=== PATIENT | female | born 2000 | race Caucasian/White ===

== ENCOUNTER 2020-11-26 09:09 | Emergency (ER) | payer MEDICAID ==
[2020-11-26] MEDS ORDERED: LORazepam 1 MG Tab PO ONE (10:15)
--- NOTE | 2020-11-26 10:21 | EDM.PDOCBH ---
ED HPI GENERAL MEDICAL PROBLEM - General Chief Complaint: Behavioral/Psych Stated Complaint: SUICIDAL Time Seen by Provider: 11/26/20 10:17 Source of Information: Reports: Patient History Limitations: Reports: No Limitations - History of Present Illness INITIAL COMMENTS - FREE TEXT/NARRATIVE: pt arrived feeling very suicidal. She feels like she could walk out in front of a car. She was just placed on control and she has had trouble with hormone treatment in the past. Onset: Gradual Duration: Day(s):, Other (pt just started working at [email or web address] so that has had increased her stress. ) Location: Reports: Generalized Associated Symptoms: Reports: Other (pt has marked anxiety. pt has had alot of suicidal thoughts. Like today she felt like walking in front of a car. She has been doing some cutting. ) - Related Data Allergies Allergy/AdvReac Type Severity Reaction Status Date / Time amoxicillin Allergy Shortness Verified 11/26/20 09:40 of Breath apple Allergy Rash Verified 11/26/20 09:41 carrot Allergy Rash Verified 11/26/20 09:44 saavedra Allergy Rash Verified 11/26/20 09:44 latex Allergy Rash Verified 11/26/20 09:42 nitrofurantoin Allergy Nausea Verified 11/26/20 09:42 Penicillins Allergy Shortness Verified 11/26/20 09:41 of Breath Home Meds: Home Meds metroNIDAZOLE [Flagyl] 500 mg PO BID 11/26/20 [History] Past Medical History Psychiatric History: Reports: ADHD, Anxiety, Depression, PTSD, Suicide Attempt Hematologic History: Reports: Anemia Social & Family History - Tobacco Use Tobacco Use Status *Q: Current Every Day Tobacco User Years of Tobacco use: 8 Packs/Tins Daily: 0.5 - Caffeine Use Caffeine Use: Reports: Coffee, Energy Drinks - Recreational Drug Use Recreational Drug Use: Yes Recreational Drug Type: Reports: Cocaine, Marijuana/Hashish ED ROS GENERAL - Review of Systems Review Of Systems: See Below Constitutional: Reports: No Symptoms HEENT: Reports: No Symptoms Respiratory: Reports: No Symptoms Cardiovascular: Reports: No Symptoms Endocrine: Reports: No Symptoms GI/Abdominal: Reports: No Symptoms : Reports: No Symptoms Musculoskeletal: Reports: No Symptoms Skin: Reports: No Symptoms Neurological: Reports: No Symptoms Psychiatric: Reports: Anxiety, Depression, Suicidal Ideation, Other (pt has had a long history of depression. She has been tried on multiple meds and these have not been helpful o her. She has just been placed on bierth control and she feels like that has changed her depression . She has just started a new job. She did have a baby about 2 monthes ago. ) ED EXAM, BEHAVIORAL HEALTH - Physical Exam Exam: See Below Text/Narrative:: pt is a very anxious appearing person who has alot of suicidal thoughts. She has had 2 hospitalizations in the past. Bakari smokes marjauna but no other street drugs. Exam Limited By: No Limitations General Appearance: Alert, Anxious, Other (pupils are equal and reactive. ) Ears: Normal TMs Nose: Normal Inspection Throat/Mouth: Normal Inspection Head: Atraumatic Neck: Normal Inspection Respiratory/Chest: No Respiratory Distress Cardiovascular: Regular Rate, Rhythm GI/Abdominal: Soft, Non-Tender (Female) Exam: Deferred Rectal (Female) Exam: Deferred Back Exam: Normal Inspection Extremities: Normal Inspection Neurological: Alert, Normal Cognition Psychiatric: Alert, Oriented, Tearful, Agitated COURSE, BEHAVIORAL HEALTH COMP - Course Vital Signs: Last Vital Signs Temp 36.3 C 11/26/20 09:36 Pulse 77 11/26/20 09:36 Resp 16 11/26/20 09:36 BP 121/88 11/26/20 09:36 Pulse Ox 100 11/26/20 09:36 Orders, Labs, Meds: Active Orders 24 hr Category Date Time Status CORONAVIRUS COVID-19 RAPID [MOLEC] Stat Lab 11/26/20 12:14 Ordered DRUG SCREEN, URINE [URCHEM] Stat Lab 11/26/20 10:16 Ordered UA W/MICROSCOPIC [URIN] Urgent Lab 11/26/20 10:15 Ordered Laboratory Tests 11/26/20 11/26/20 11/26/20 Range/Units 10:24 10:24 10:24 WBC 5.8 (4.5-11.0) K/uL RBC 5.28 (3.30-5.50) M/uL Hgb 12.8 (12.0-15.0) g/dL Hct 40.1 (36.0-48.0) % MCV 76 L (80-98) fL MCH 24 L (27-31) pg MCHC 32 (32-36) % Plt Count 366 (150-400) K/uL Neut % (Auto) 45.4 (36-66) % Lymph % (Auto) 37.3 (24-44) % Mcdowell % (Auto) 7.6 H (2-6) % Eos % (Auto) 6.9 H (2-4) % Baso % (Auto) 2.8 H (0-1) % Sodium 140 (140-148) mmol/L Potassium 4.2 (3.6-5.2) mmol/L Chloride 104 (100-108) mmol/L Carbon Dioxide 27 (21-32) mmol/L Anion Gap 8.8 (5.0-14.0) mmol/L BUN 9 (7-18) mg/dL Creatinine 0.6 (0.6-1.0) mg/dL Est Cr Clr Drug Dosing 120.00 mL/min Estimated GFR (MDRD) > 60 (>60) Glucose 85 (74-106) mg/dL Calcium 9.0 (8.5-10.1) mg/dL Total Bilirubin 0.2 (0.2-1.0) mg/dL AST 17 (15-37) U/L ALT 29 (12-78) U/L Alkaline Phosphatase 77 (46-116) U/L Total Protein 6.9 (6.4-8.2) g/dL Albumin 4.1 (3.4-5.0) g/dL Globulin 2.8 (2.3-3.5) g/dL Albumin/Globulin Ratio 1.5 (1.2-2.2) Ethyl Alcohol < 3 mg/dL Medications Discontinued Medications Generic Name Dose Route Start Last Admin Trade Name Freq PRN Reason Stop Dose Admin Lorazepam 1 mg 11/26/20 10:15 11/26/20 10:24 Lorazepam 1 Mg Tab PO 11/26/20 10:16 1 mg ONETIME ONE Administration Medical Clearance: 11/26/20 14:21 josselyn team did a phone interview with the pt and felt like she could go home. She did not give a urine while she was here. Her other labs were good. She feels some of her mood changes are related to her recent control change. She did have a baby 2 monthes ago. Crisis set her up for a psych and medication consult in [place] next sun. She will keep a safety contract and return to the ER if she feels unsafe at home. Her boyfriend is on board with this. Departure - Departure Time of Disposition: 14:26 Disposition: Home, Self-Care 01 Condition: Fair Clinical Impression: Depression - Discharge Information Referrals: PCP,None [Primary Care Provider] - Forms: ED Department Discharge Care Plan Goals: keep wed appt in [place] rtc if pt is feeling unsafe at home and she is not able to keep the safety contract. If she has ongoing issues She needs to see obgyn regaring this. Sepsis Event Note (ED) - Focused Exam Vital Signs: Vital Signs Temp Pulse Resp BP Pulse Ox 11/26/20 09:36 36.3 C 77 16 121/88 100 11/26/20 09:24 36.3 C 77 12 121/88 100 - My Orders Last 24 Hours: My Active Orders 11/26/20 10:15 UA W/MICROSCOPIC [URIN] Urgent 11/26/20 10:16 DRUG SCREEN, URINE [URCHEM] Stat 11/26/20 12:14 CORONAVIRUS COVID-19 RAPID [MOLEC] Stat - Assessment/Plan Last 24 Hours: My Active Orders 11/26/20 10:15 UA W/MICROSCOPIC [URIN] Urgent 11/26/20 10:16 DRUG SCREEN, URINE [URCHEM] Stat 11/26/20 12:14 CORONAVIRUS COVID-19 RAPID [MOLEC] Stat
== END 2020-11-26 14:44 | disposition home or self-care (01) ==
LOC: JP.ED 09:09
DX: F32.9 Major depressive disorder, single episode, unspecified (principal); Z72.0 Tobacco use; Z88.0 Allergy status to penicillin; Z91.018 Allergy to other foods; Z91.040 Latex allergy status; Z88.1 Allergy status to other antibiotic agents
CPT/HCPCS: 36415; 80053; 80307; 85025; 99284; A9270

== ENCOUNTER 2020-12-10 10:21 | Emergency (ER) | payer MEDICAID ==
[2020-12-10] MEDS ORDERED: Ketorolac 30 MG/ML SDV IM ONE (10:59)
--- NOTE | 2020-12-10 11:05 | EDM.PDOC ---
ED HPI GENERAL MEDICAL PROBLEM - General Chief Complaint: CAMP GUARD Problem Stated Complaint: hemorrhaging?? Time Seen by Provider: 12/10/20 10:50 Source of Information: Reports: Patient, RN History Limitations: Reports: Other (minimal records) - History of Present Illness INITIAL COMMENTS - FREE TEXT/NARRATIVE: 20 yo female from [place] with an CAMP GUARD provider in [place] presents with heavy vaginal bleeding today. Has a Nexplanon in her L arm for contraception. Has an ovarian cyst as well that is causing her some pain. Has not taken anything for the pain or consulted her TELE[employer]ION AND [employer] REPA[employer] provider. Is concerned that her cyst is causing her vaginal bleeding. Had a baby 2 mos ago and says she is not currently sexually active. Onset: Today Onset Date: 12/10/20 Duration: Hour(s):, Constant Location: Reports: Pelvis Quality: Reports: Pressure (from her cyst) Severity: Moderate Improves with: Reports: None Worsens with: Reports: None Context: Reports: Other (See HPI) Associated Symptoms: Reports: No Other Symptoms. Denies: Fever/Chills, Nausea/Vomiting Treatments TRANSPORTATION ENGINEER: Reports: Other (see below) (none) Pelvic Pain Score (Numeric/FACES): 8 - Related Data Allergies Allergy/AdvReac Type Severity Reaction Status Date / Time amoxicillin Allergy Shortness Verified 12/10/20 10:31 of Breath apple Allergy Rash Verified 12/10/20 10:31 carrot Allergy Rash Verified 12/10/20 10:31 saavedra Allergy Rash Verified 12/10/20 10:31 latex Allergy Rash Verified 12/10/20 10:31 nitrofurantoin Allergy Nausea Verified 12/10/20 10:31 Penicillins Allergy Shortness Verified 12/10/20 10:31 of Breath Home Meds: Home Meds metroNIDAZOLE [Flagyl] 500 mg PO BID 11/26/20 [History] Naproxen Sodium [Naproxen Sodium ER] 500 mg PO Q12H PRN #8 tablet.er 12/10/20 [Rx] Past Medical History HEENT History: Reports: Other (See Below) Other HEENT History: hearing loss left ear Cardiovascular History: Reports: Other (See Below) Other Cardiovascular History: dysrhythmias Gastrointestinal History: Reports: None CAMP GUARD History: Reports: Polycystic Ovaries, Psychiatric History: Reports: ADHD, Anxiety, Depression, PTSD, Suicide Attempt Hematologic History: Reports: Anemia - Past Surgical History Head Surgeries/Procedures: Reports: None HEENT Surgical History: Reports: None Cardiovascular Surgical History: Reports: None GI Surgical History: Reports: Appendectomy, Cholecystectomy Dermatological Surgical History: Reports: None Social & Family History - Tobacco Use Tobacco Use Status *Q: Current Every Day Tobacco User Years of Tobacco use: 10 Packs/Tins Daily: 0.5 - Caffeine Use Caffeine Use: Reports: Coffee, Energy Drinks, Soda - Recreational Drug Use Recreational Drug Use: Yes Recreational Drug Type: Reports: Marijuana/Hashish Recreational Drug Use Frequency: Daily ED ROS GENERAL - Review of Systems Review Of Systems: See Below Constitutional: Reports: No Symptoms HEENT: Reports: No Symptoms Respiratory: Reports: No Symptoms Cardiovascular: Reports: No Symptoms GI/Abdominal: Reports: No Symptoms : Reports: Pain (L pelvis), Other (menorrhagia) Musculoskeletal: Reports: No Symptoms Skin: Reports: No Symptoms Neurological: Reports: No Symptoms ED EXAM, RENAL/ - Physical Exam Exam: See Below Exam Limited By: No Limitations General Appearance: Alert, WD/WN, Mild Distress Eye Exam: Bilateral Eye: Normal Inspection Ears: Normal External Exam, Normal Canal, Hearing Grossly Normal Nose: Normal Inspection, No Blood Throat/Mouth: Normal Inspection, Normal Lips, Normal Oropharynx, Normal Voice, No Airway Compromise Head: Atraumatic, Normocephalic Neck: Normal Inspection Respiratory/Chest: No Respiratory Distress, Lungs Clear, Normal Breath Sounds, No Accessory Muscle Use Cardiovascular: Regular Rate, Rhythm, No Edema. No: Tachycardia Extremities: Normal Inspection Neurological: Alert, Oriented, CN II-XII Intact, Normal Cognition, No Motor/Sensory Deficits Psychiatric: Normal Affect, Normal Mood Skin Exam: Warm, Dry, Intact, Normal Color, No Rash Course - Vital Signs Last Recorded V/S: Last Vital Signs Temp 36.1 C 12/10/20 10:29 Pulse 88 12/10/20 10:29 Resp 16 12/10/20 10:29 BP 139/85 12/10/20 10:29 Pulse Ox 94 L 12/10/20 10:29 Orthostatic Blood Pressure [ 120/75 Standing] Orthostatic Blood Pressure [ 113/71 Supine] Orthostatic Blood Pressure [ 120/73 Sitting] - Orders/Labs/Meds Orders: Active Orders 24 hr Category Date Time Status Orthostatic Vital Signs [RC] ASDIRECTED Care 12/10/20 10:36 Active Labs: Laboratory Tests 12/10/20 12/10/20 Range/Units 10:36 10:55 Hgb 12.6 (12.0-15.0) g/dL Urine HCG, Qual Negative Meds: Medications Discontinued Medications Generic Name Dose Route Start Last Admin Trade Name Freq PRN Reason Stop Dose Admin Ketorolac Tromethamine 30 mg 12/10/20 10:59 12/10/20 11:06 Ketorolac 30 Mg/Ml Sdv IM 12/10/20 11:00 30 mg ONETIME ONE Administration Departure - Departure Time of Disposition: 11:30 Disposition: Home, Self-Care 01 Condition: Good Clinical Impression: Ovarian cyst Qualifiers: Laterality: left Qualified Code(s): N83.202 - Unspecified ovarian cyst, left side Menorrhagia Qualifiers: Menorrhagia type: with irregular cycle Qualified Code(s): N92.1 - Excessive and frequent menstruation with irregular cycle - Discharge Information *PRESCRIPTION DRUG MONITORING PROGRAM REVIEWED*: Not Applicable *COPY OF PRESCRIPTION DRUG MONITORING REPORT IN PATIENT NISHA: Not Applicable Prescriptions: Naproxen Sodium [Naproxen Sodium ER] 500 mg PO Q12H PRN #8 tablet.er PRN Reason: Pain Referrals: PCP,None [Primary Care Provider] - Forms: ED Department Discharge Additional Instructions: Drink ample fluids. You may take the naproxen sodium with food every 12 hrs for pain relief. If needed you may add acetaminophen for more pain relief. Don't start the naproxen until after 5 pm today due to the Toradol we gave. Stay in communication with your TELEVISION AND [employer] REPAIRER doctor regarding your heavy bleeding. Your hemoglobin today was normal at 12.5. Sepsis Event Note (ED) - Evaluation Sepsis Screening Result: No Definite Risk - Focused Exam Vital Signs: Vital Signs Temp Pulse Resp BP Pulse Ox 12/10/20 10:29 36.1 C 88 16 139/85 94 L - My Orders Last 24 Hours: My Active Orders 12/10/20 10:36 Orthostatic Vital Signs [RC] ASDIRECTED - Assessment/Plan Last 24 Hours: My Active Orders 12/10/20 10:36 Orthostatic Vital Signs [RC] ASDIRECTED
== END 2020-12-10 11:55 | disposition home or self-care (01) ==
LOC: JP.ED 10:21
DX: N83.202 Unspecified ovarian cyst, left side (principal); N92.1 Excessive and frequent menstruation with irregular cycle; Z72.0 Tobacco use; Z88.0 Allergy status to penicillin; Z91.018 Allergy to other foods; Z91.040 Latex allergy status; Z88.1 Allergy status to other antibiotic agents
CPT/HCPCS: 36415; 81025; 85018; 96372; 99284; J1885